=== PATIENT | male | born 1970 | race Caucasian/White ===

== ENCOUNTER 2016-10-27 09:51 | Emergency (ER) | payer MEDICARE ==
[~2016-10-27] VITALS: Ht 172.7 cm; Wt 93.4 kg
[~2016-10-27 09:51] MED LIST: ACHC10OT OT; ALBU17AE3 IH; ALBU2.5V4 IH; ATOM100C PO; BACL10TA PO; CPR500T PO; CYCL10TA9 PO; DIAZ-345 PO; DIAZ10TA PO; DOXY100C2 PO; FLUO20CA25 PO; HYDR-2890 PO; HYDR-2997 PO; HYDR-3720 PO; LD5PT TOP; METH4TAB PO; NAPR-243 PO; NEBU1EAC2 MC; OXYC-197 PO; PREG100C22 PO; TMSL.4C PO; TRAM300T4 PO; TRAZ300T3 PO; [UNRECOGNIZED DRUG - CODE]
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
[2016-10-27 12:59] LABS: BILIRUBIN,URINE NEGATIVE (NEGATIVE); KETONES,URINE 1+ (NEGATIVE); LEUKOCYTE ESTERASE ,URINE 1+ (NEGATIVE); NITRITE,URINE NEGATIVE (NEGATIVE); PH,URINE 6 (5-9); PROTEIN,URINE 2+ (NEGATIVE); UROBILINOGEN,URINE NORMAL (NORMAL)
[2016-10-27] MEDS ORDERED: KETOROLAC 30 MG/ML VIAL IVP STA (13:06)
[2016-10-27] MEDS ORDERED: NS IV 1000 ML 1,000 ML IV ONE (13:06)
[2016-10-27] MEDS ORDERED: ORPHENADRINE 60 MG/2 ML (NORFLEX) AMP IV STA (13:06)
[2016-10-27 13:08] LABS: SQUAMOUS EPITHELIAL CELL,UR RARE /HPF
[2016-10-27] MEDS ORDERED: NS 100 ML (IVPB) BAG IV ONE (13:15)
[2016-10-27] MEDS ORDERED: IOHEXOL 350 MG/ML 100 ML (OMNIPAQUE 350) VIAL IV ONE (13:15)
[2016-10-27] MEDS ORDERED: CATHETER FLUSH 10 ML SYR IV PRN (13:15)
[2016-10-27] MEDS ORDERED: ONDANSETRON 4 MG/2 ML (SDV) Z0FRAN IVP ONE (13:15)
[2016-10-27 13:36] LABS: BASOPHILS % (AUTO) 0 % (0-10); EOSINOPHILS % (AUTO) 0 % (0-10); LYMPHOCYTES # (AUTO) 1.3 X 10^3 (1.0-4.0); LYMPHOCYTES % (AUTO) 21 % (12-44); MEAN CORPUSCULAR HEMOGLOBIN 32 PG (25-34); MEAN CORPUSCULAR HGB CONC 36 G/DL (32-36); MEAN CORPUSCULAR VOLUME 88 FL (80-99); MEAN PLATELET VOLUME 9.3 FL (7.4-10.4); MONOCYTES % (AUTO) 17 % (0-12); NEUTROPHILS # (AUTO) 3.7 X 10^3 (1.8-7.8); NEUTROPHILS % (AUTO) 62 % (42-75); PLATELET COUNT 237 10^3/uL (130-400); RED BLOOD COUNT 5.21 10^6/uL (4.35-5.85); RED CELL DISTRIBUTION WIDTH 13.3 % (10.0-14.5)
[2016-10-27 14:02] LABS: ALANINE AMINOTRANSFERASE 49 U/L (0-55); ALBUMIN 4.8 G/DL (3.2-4.5); ANION GAP 13 MMOL/L (5-14); ASPARTATE AMINO TRANSFERASE 40 U/L (5-34); BILIRUBIN,TOTAL 0.5 MG/DL (0.1-1.0); BLOOD UREA NITROGEN 11 MG/DL (7-18); BUN/CREATININE RATIO 10; CALCIUM 9.1 MG/DL (8.5-10.1); CARBON DIOXIDE 21 MMOL/L (21-32); CHLORIDE 101 MMOL/L (98-107); CREATININE SERUM 1.08 MG/DL (0.60-1.30); GFR ESTIMATED > 60; GLUCOSE 106 MG/DL (70-105); POTASSIUM 3.3 MMOL/L (3.6-5.0); SODIUM 135 MMOL/L (135-145)
--- NOTE | 2016-10-27 14:08 | Diagnostic Imaging Report ---
PROCEDURE: CT abdomen and pelvis with contrast. TECHNIQUE: Multiple contiguous axial images were obtained through the abdomen and pelvis after administration of intravenous contrast. INDICATION: Abdominal pain. Cough. History of hernia repair. 100 mL of Omnipaque 350 is administered intravenously. FINDINGS: The lung bases are clear. The liver, the gallbladder, the spleen, the adrenals, and the pancreas appear unremarkable. The kidneys have symmetric enhancement and contrast excretion. There is no hydronephrosis. Abdominal aorta is normal in caliber. No para-aortic significantly enlarged lymph node is seen. There is a prominent amount of fluid within the proximal colon and the small bowel loops. Consider possibility of enteritis. There is no bowel obstruction however. No inflammatory changes in the abdominal fat and no free fluid or fluid collection of significance seen. The appendix is normal. There is mild diastases of the recti with no hernia seen. Fossa structures demonstrate lower lumbar spine degenerative changes with disc vacuum phenomenon at L4/5 level. IMPRESSION: Suggestion of excessive amount of fluid in the small bowel and proximal colon may relate to enteritis. Correlate clinically. Dictated by: Dictated on workstation # [id number]
[2016-10-27] MEDS ORDERED: CYCL10TA9 PO (14:58)
[2016-10-27] MEDS ORDERED: ONDA8TAB13 PO (14:58)
[2016-10-27 15:08] VITALS: BP 144/101
== END 2016-10-27 15:06 | disposition home or self-care (01) ==
LOC: EDUNIT# 09:51 → ER 09:54
DX: M62.838 Other muscle spasm (principal); R11.0 Nausea; J06.9 Acute upper respiratory infection, unspecified
CPT/HCPCS: 36415; 74177; 80053; 80306; 81000; 85025; 96361; 96374; 96375

== ENCOUNTER → 2017-02-27 | Outpatient (CLI) | payer MEDICARE, OTHER ==
[~2017-02-27] MED LIST changes: +GADOBUTROL 10 MMOL/10 ML (GADAVIST) VIAL IV ONE; +ONDA8TAB13 PO
--- NOTE | 2017-02-27 14:56 | Diagnostic Imaging Report ---
PROCEDURE: MRI lumbar spine with and without contrast. TECHNIQUE: Multiplanar, multisequence MRI of the lumbar spine was performed with and without contrast. INDICATION: Chronic back pain, left leg numbness. FINDINGS: The previous MRI lumbar spine exam of 04/12/09 noted a circumferential disc bulge at L4-L5 with narrowing of the central canal to approximately 8.0 mm. On this exam, the disc bulge is again evident. There does seem to be greater narrowing of the disc space at L4-L5 than noted on the prior exam. The disc bulge centrally is also more prominent and the AP diameter of the thecal sac is now narrowed to 5.6 mm. There is severe narrowing of the neuroforamen bilaterally at this level, particularly on the right. This finding is similar to the prior exam. The prior study also noted a disc bulge centrally at L5-S1. The discs efface the ventral aspect of the thecal sac and narrow the AP diameter of the thecal sac to approximately 13 mm. The disc bulge at this level is slightly more prominent and the AP diameter of the thecal sac is now narrowed to 9.1 mm. As on the prior exam, there is narrowing of the neuroforamen bilaterally, again more so on the right. There is a broad-based disc bulge centrally at L3-L4. The disc flattens the ventral aspect and narrows the AP diameter of the thecal sac to approximately 7.0 mm. On the prior exam, the AP diameter of the thecal sac at the L3-L4 level measured 10.1 mm. There is also moderate narrowing of the neuroforamen bilaterally at this level, especially on the right. At the L2-L3 level, the AP diameter of the thecal sac is narrowed to 10.0 mm. There is also moderate narrowing of the neuroforamen bilaterally. These findings are similar to the prior exam. There is no evidence for spinal stenosis or nerve root encroachment at L1-L2. There is no abnormal signal arising from the cord or the vertebral bodies to indicate an acute abnormality. There is no abnormal enhancement on the postcontrast series either. There is no sign of a paraspinal mass. IMPRESSION: 1. 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 There is also continued severe narrowing of the neuroforamen bilaterally, particularly on the right. 2. Mild spinal stenosis has also developed at L5-S1. There is again severe narrowing of the neuroforamen on the right at this level and moderate narrowing on the left. 3. There is moderate central stenosis now present at the L3-L4 level with neuroforaminal narrowing bilaterally, especially on the right. 4. The remainder of the lumbar spine is unremarkable for a high-grade central stenosis. 5. There is no acute bony abnormality noted and there is no sign of a cord lesion. 6. There is no abnormal enhancement on the postcontrast series. Dictated by: Dictated on workstation # [id number]
--- NOTE | 2017-02-27 17:51 | Diagnostic Imaging Report ---
EXAMINATION: Lumbar spine. INDICATION: Bilateral leg numbness. TECHNIQUE: AP, lateral, and spot lateral views were obtained. FINDINGS: As noted on the prior exam of 09/20/2009, there is narrowing of the disc space at L4-L5. This finding seems stable. Also, in the interval since the prior study, mild narrowing of the disc space at L5-S1 has developed. Translation of L4 with respect to L5 noted previously is again evident. As suggested on the prior exam, there is a pars defect at L5 but there is no significant anterior translation of L5 with respect to S1. The remainder of the lumbar spine is unchanged when compared to the prior exam. There is no fracture, dislocation, or acute bony abnormality evident. There is no sign of a paraspinal mass. IMPRESSION: 1. The degenerative disc and bony disease at L4-L5 seen on the prior study has not progressed. There is slightly greater narrowing of the disc space at L5-S1, however. 2. The remainder of the lumbar spine is stable. There is no acute abnormality identified. 3. If there is clinical concern regarding spinal stenosis or nerve root encroachment, then MRI would be recommended for further study. Dictated by: Dictated on workstation # [id number]
--- NOTE | 2017-02-27 18:10 | Diagnostic Imaging Report ---
EXAMINATION: Pelvis and bilateral hips. INDICATION: Bilateral leg weakness and numbness. A single AP view of the pelvis and AP and lateral views of both hip joints were obtained. There are no prior plain film examinations available for comparison. FINDINGS: There is no fracture, dislocation, or acute bony abnormality evident. There is mild degenerative disease involving the hip and sacroiliac joints. The soft tissues are unremarkable. IMPRESSION: There is no evidence for an acute bony abnormality. Dictated by: Dictated on workstation # [id number]
== END ==
LOC: RAD 10:56
PROVIDERS: ATTEND Family Medicine
DX: M51.36 Other intervertebral disc degeneration, lumbar region (principal); M48.06 Spinal stenosis, lumbar region; M25.551 Pain in right hip; M25.552 Pain in left hip
CPT/HCPCS: 72100; 72158; 73523

== ENCOUNTER 2017-03-29 07:12 | Emergency (ER) | payer MEDICARE ==
[~2017-03-29] VITALS: Ht 172.7 cm; Wt 97.5 kg
[~2017-03-29 07:12] MED LIST changes: -GADOBUTROL 10 MMOL/10 ML (GADAVIST) VIAL IV ONE
[2017-03-29] MEDS ORDERED: methylPREDNISolone 125 MG (Solu-MEDROL) VIAL IM ONE (07:45)
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
[2017-03-29 08:35] VITALS: BP 153/97
== END 2017-03-29 08:35 | disposition home or self-care (01) ==
LOC: EDUNIT# 07:12 → ER 07:13
DX: L23.7 Allergic contact dermatitis due to plants, except food (principal); J45.909 Unspecified asthma, uncomplicated; Z87.19 Personal history of other diseases of the digestive system; Z87.828 Personal history of other (healed) physical injury and trauma; Z87.891 Personal history of nicotine dependence
CPT/HCPCS: 99284

== ENCOUNTER 2018-03-30 13:14 | Emergency (ER) | payer MEDICARE ==
[~2018-03-30] VITALS: Ht 172.7 cm; Wt 95.3 kg
[~2018-03-30 13:14] MED LIST changes: -OXYC-197 PO; +OXYC1TAB87 PO
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
[2018-03-30] MEDS ORDERED: CEPH-507 PO (13:57)
[2018-03-30 14:19] VITALS: BP 140/113
== END 2018-03-30 14:19 | disposition home or self-care (01) ==
LOC: EDUNIT# 13:14 → ER 13:15
DX: L03.011 Cellulitis of right finger (principal); J06.9 Acute upper respiratory infection, unspecified; J45.909 Unspecified asthma, uncomplicated; Z87.891 Personal history of nicotine dependence; Z87.19 Personal history of other diseases of the digestive system
CPT/HCPCS: 87430

== ENCOUNTER 2018-04-26 11:12 | Emergency (ER) | payer MEDICARE ==
[~2018-04-26] VITALS: Ht 170.2 cm; Wt 95.3 kg
[~2018-04-26 11:12] MED LIST changes: +CEPH-507 PO
--- OUTSIDE RECORDS SUMMARY | 2018-04-26 11:26 | XMS REPORT | Continuity of Care Document ---
Author Author [facility] Organization [facility] Address Unknown Phone Unavailable Allergies Active Description Code Type Severity Reaction Onset Reported/Identified Relationship to Patient Clinical Status Yes No Known Drug Allergies [id number] Drug Allergy Mild N/A 12/18/2008 Medications There [...] 573.8 08/14/2015 Ot 780.60 08/14/2015 STEPHENIE GOULD, JAMYE Diaz Ot 473.0 08/17/2015 Ot 553.1 08/17/2015 [...] 573.8 09/28/2015 Ot 780.60 09/28/2015 STEPHENIE GOULD, JAMEY Diaz Ot 473.0 09/28/2015 JEAN GOULD, GAB [...] MD Ot J32.9 CHRONIC SINUSITIS, UNSPECIFIED 11/27/2015 CHE URRUTIA MD Ot J32.9 CHRONIC SINUSITIS, [...] PERSONAL HISTORY OF NICOTINE DEPENDENCE 03/31/2017 HUMERA GOULD, GERMAINE Celestin Ot J45.909 UNSPECIFIED ASTHMA, UNCOMPLICATED 03/31/2017 HUMERA GOULD, GERMAINE Celestin Ot L23.7 ALLERGIC CONTACT DERMATITIS DUE TO PLANT 03/31/2017 GERMAINE GRUBBS MD Ot Z87.19 PERSONAL HISTORY OF OTHER DISEASES OF 03/31/2017 GERMAINE GRUBBS MD Ot Z87.828 PERSONAL HISTORY OF OTH (HEALED) PHYSICA 03/31/2017 GERMAINE GRUBBS MD Ot Z87.891 PERSONAL HISTORY OF NICOTINE DEPENDENCE 03/30/2018 MENDEL MAGUIRE Ot J06.9 ACUTE UPPER RESPIRATORY INFECTION, UNSPE 03/30/2018 MENDEL MAGUIRE Ot J45.909 UNSPECIFIED ASTHMA, UNCOMPLICATED 03/30/2018 MENDEL MAGUIRE Ot L03.011 CELLULITIS OF RIGHT FINGER 03/30/2018 MENDEL MAGUIRE Ot Z87.19 PERSONAL HISTORY OF OTHER DISEASES OF 03/30/2018 MENDEL MAGUIRE Ot Z87.891 PERSONAL HISTORY OF NICOTINE DEPENDENCE 04/01/2018 MENDEL MAGUIRE Ot J06.9 ACUTE UPPER RESPIRATORY INFECTION, UNSPE 04/01/2018 MENDEL MAGUIRE Ot J45.909 UNSPECIFIED ASTHMA, UNCOMPLICATED 04/01/2018 MENDEL MAGUIRE Ot L03.011 CELLULITIS OF RIGHT FINGER 04/01/2018 DIANE MAGUIREIS Ot Z87.19 PERSONAL HISTORY OF OTHER DISEASES OF 04/01/2018 MENDEL MAGUIRE Ot Z87.891 PERSONAL HISTORY OF NICOTINE DEPENDENCE [...] plasma albumin measurement (mass/volume) 4.8 g/dL 3.2-4.5 Streptococcus pyogenes antigen detection - 03/30/18 13:30 Streptococcus pyogenes antigen detection NEGATIVE NEGATIVE Bacterial throat culture - 03/30/18 13:30 Bacterial throat culture [id number] NRG FREE TEXT EXTERNAL PLUS ABUNDANT NORMAL MARK NRG QUANTITY OF GROWTH Moderate Growth NRG Encounters ACCT No. Visit Date/Time Discharge Status Pt. Type Provider Facility Loc./Unit Complaint [id number] 03/30/2018 13:15:00 03/30/2018 14:19:00 DIS Emergency TING MENDEL [facility] ER CONGESTION;BUG BITE [id number] 03/29/2017 07:13:00 03/29/2017 08:35:00 DIS Emergency HUMERA GOULD, GERMAINE Celestin [facility] ER POSS POSION [place] ON FACE [id number] 02/27/2017 10:56:00 02/27/2017 23:59:59 CLS Outpatient MINE GOULD, KERI [facility] RAD M51.19 [id number] 10/27/2016 09:54:00 10/27/2016 15:06:00 DIS Emergency YUSUF CHRISTENSEN [facility] ER ABD PAIN/SPASMS [id number] 05/27/2016 10:28:00 05/27/2016 23:59:59 CLS Outpatient ZACARIAS PAYNE [facility] QUICK BACK PAIN [id number] 09/28/2015 12:28:00 09/28/2015 23:59:59 CLS Outpatient RENAN GOULD, CHE Rodríguez [facility] RAD CHRONIC SINUSITIS [id number] 08/17/2015 09:44:00 08/17/2015 16:35:00 DIS Outpatient GAB PENA MD [facility] SDC RIGHT INGUINAL HERNIA [id number] 08/15/2015 05:33:00 08/15/2015 23:59:59 CLS Outpatient GAB PENA MD [facility] PREOP RIGHT INGUINAL HERNIA [id number] 10/25/2014 10:40:00 10/25/2014 23:59:59 CLS Outpatient JAMEY CASIANO MD [facility] RAD CHRONIC SINUSITIS [id number] 10/02/2015 15:11:00 Document Registration [id number] 10/02/2015 15:11:00 Document Registration [id number] 10/02/2015 15:11:00 Document Registration [id number] 10/02/2015 15:11:00 Document Registration [id number] 10/02/2015 15:11:00 Document Registration [id number] 10/25/2014 15:45:00 Document Registration [id number] 10/25/2014 15:45:00 Document Registration [id number] 10/25/2014 15:45:00 Document Registration [id number] 12/15/2011 20:56:00 Document Registration [id number] 10/31/2011 11:24:00 Document Registration [id number] 10/25/2011 01:49:00 Document Registration [id number] 07/16/2011 05:44:00 Document Registration [id number] 06/06/2010 12:59:00 Document Registration [id number] 05/16/2010 13:41:00 Document Registration [id number] 04/16/2010 13:21:00 Document Registration [id number] 09/26/2009 00:12:00 Document Registration [id number] 04/12/2009 09:38:00 Document Registration [id number] 01/18/2009 10:37:00 Document Registration [id number] 11/01/2008 12:30:00 Document Registration [id number] 10/18/2008 08:18:00 Document Registration
--- NOTE | 2018-04-26 11:34 | ED Dyspnea ---
General Stated Complaint: COUGH;CONGESTION Source of Information: Patient Exam Limitations: No Limitations History of Present Illness Date Seen by Provider: Apr 26, 2018 Time Seen by Provider: 11:32 Initial Comments To ER with one month history of dyspnea. He's had a intermittently productive cough. No fevers or chills. He was seen here in the emergency room within the past few weeks for the same at that time it was felt as though he had a virus. He's been using his inhaler with minimal relief. At this time he does not feel short of breath. States that he feels like his lungs are full. Timing/Duration: Other (1 month) Severity: Moderate Associated Symptoms: Cough Allergies and Home Medications Allergies Coded Allergies: No Known Drug Allergies (Unverified , 12/18/08) Home Medications Cephalexin 500 Mg Capsule, 500 MG PO BID Prescribed by: MENDEL MAGUIRE on 03/30/18 8924 Patient Home Medication List Home Medication List Reviewed: Yes Review of Systems Review of Systems Constitutional: see HPI; No chills, No fever EENTM: see HPI Respiratory: see HPI, cough, short of breath Cardiovascular: no symptoms reported; No chest pain, No palpitations, No syncope Genitourinary: no symptoms reported Musculoskeletal: no symptoms reported Skin: no symptoms reported Psychiatric/Neurological: No Symptoms Reported Endocrine: No Symptoms Reported Hematologic/Lymphatic: No Symptoms Reported Past Elqaexg-Ikzyhs-Xzpndd Hx Patient Social History Alcohol Beverage of Choice: Beer Former Smoker, Quit: Oct 04, 1996 Recent Hopitalizations: No Seasonal Allergies Seasonal Allergies: Yes Past Medical History Surgeries: Yes (left leg fx, left ankle crushed, right leg fx, umb hernia) Abdominal, Orthopedic Respiratory: Yes Asthma Cardiac: No Neurological: No Reproductive Disorders: No Sexually Transmitted Disease: No Gastrointestinal: Yes Abdominal Hernia Musculoskeletal: Yes (CRUSH INJURY TO LEFT ANKLE) Chronic Back Pain Endocrine: No Cancer: No Psychosocial: No Integumentary: No (hx of frequent superficial skin infections) Blood Disorders: No (hx of low potassium) Family Medical History No Pertinent Family Hx Physical Exam Vital Signs Capillary Refill : Height, Weight, BMI Height: 5'8.00" Weight: 210lbs. oz. 95.211287so; 32.45 BMI Method:Stated General Appearance: No Apparent Distress, WD/WN, Obese Neck: Full Range of Motion, Normal Inspection Respiratory: Lungs Clear, Normal Breath Sounds, No Accessory Muscle Use, No Respiratory Distress Cardiovascular: Regular Rate, Rhythm, Normal Peripheral Pulses Gastrointestinal: Normal Bowel Sounds, Non Tender, Soft Extremity: Normal Capillary Refill, Normal Inspection Neurologic/Psychiatric: Alert, Oriented x3 Skin: Normal Color, Warm/Dry Progress/Results/Core Measures Results/Orders Lab Results Laboratory Tests Test 04/26/18 11:54 Range/Units White Blood Count 8.4 4.3-11.0 10^3/uL Red Blood Count 4.79 4.35-5.85 10^6/uL Hemoglobin 15.6 13.3-17.7 G/DL Hematocrit 43 40-54 % Mean Corpuscular Volume 90 80-99 FL Mean Corpuscular Hemoglobin 33 25-34 PG Mean Corpuscular Hemoglobin Concent 36 32-36 G/DL Red Cell Distribution Width 13.3 10.0-14.5 % Platelet Count 370 130-400 10^3/uL Mean Platelet Volume 8.6 7.4-10.4 FL Neutrophils (%) (Auto) 54 42-75 % Lymphocytes (%) (Auto) 34 12-44 % Monocytes (%) (Auto) 7 0-12 % Eosinophils (%) (Auto) 4 0-10 % Basophils (%) (Auto) 1 0-10 % Neutrophils # (Auto) 4.5 1.8-7.8 X 10^3 Lymphocytes # (Auto) 2.9 1.0-4.0 X 10^3 Monocytes # (Auto) 0.6 0.0-1.0 X 10^3 Eosinophils # (Auto) 0.4 H 0.0-0.3 10^3/uL Basophils # (Auto) 0.0 0.0-0.1 10^3/uL Sodium Level 138 135-145 MMOL/L Potassium Level 4.0 3.6-5.0 MMOL/L Chloride Level 105 98-107 MMOL/L Carbon Dioxide Level 21 21-32 MMOL/L Anion Gap 12 5-14 MMOL/L Blood Urea Nitrogen 10 7-18 MG/DL Creatinine 1.01 0.60-1.30 MG/DL Estimat Glomerular Filtration Rate > 60 BUN/Creatinine Ratio 10 Glucose Level 158 H 70-105 MG/DL Calcium Level 9.7 8.5-10.1 MG/DL Corrected Calcium 9.3 8.5-10.1 MG/DL Total Bilirubin 0.4 0.1-1.0 MG/DL Aspartate Amino Transf (AST/SGOT) 23 5-34 U/L Alanine Aminotransferase (ALT/SGPT) 41 0-55 U/L Alkaline Phosphatase 75 40-136 U/L B-Type Natriuretic Peptide < 10.0 <100.0 PG/ML Total Protein 7.8 6.4-8.2 GM/DL Albumin 4.5 3.2-4.5 GM/DL My Orders Orders - JAMEY ENCISO APRN Ekg Tracing (04/26/18 11:30) BNP (04/26/18 11:30) Cbc With Automated Diff (04/26/18 11:30) Comprehensive Metabolic Panel (04/26/18 11:30) Chest Pa/Lat (2 View) (04/26/18 11:30) Departure Communication (Admissions) EKG shows normal sinus rhythm without ectopy, left anterior fascicular block. Heart rate of 83. Impression Primary Impression: Dyspnea Disposition: 01 HOME, SELF-CARE Condition: Stable Departure-Patient Inst. Decision time for Depature: 12:28 Referrals: KERI BLOUNT MD (PCP/Family) Primary Care Physician Patient Instructions: Shortness of Breath (Dyspnea) Add. Discharge Instructions: 1. Call Dr. Blount to make an appointment for follow-up. Return to the emergency room for any concerns. Scripts Methylprednisolone (Medrol) 4 Mg Tab.ds.pk 4 MG PO UD, #1 PKG Prov: JAMEY ENCISO APRN 04/26/18 Copy Copies To 1: KERI BLOUNT MD, PETER J APRN Apr 26, 2018 11:34
[2018-04-26 12:01] LABS: BASOPHILS % (AUTO) 1 % (0-10); EOSINOPHILS # (AUTO) 0.4 10^3/uL (0.0-0.3); EOSINOPHILS % (AUTO) 4 % (0-10); HEMATOCRIT 43 % (40-54); HEMOGLOBIN 15.6 G/DL (13.3-17.7); LYMPHOCYTES # (AUTO) 2.9 X 10^3 (1.0-4.0); LYMPHOCYTES % (AUTO) 34 % (12-44); MEAN CORPUSCULAR HEMOGLOBIN 33 PG (25-34); MEAN CORPUSCULAR HGB CONC 36 G/DL (32-36); MEAN CORPUSCULAR VOLUME 90 FL (80-99); MEAN PLATELET VOLUME 8.6 FL (7.4-10.4); MONOCYTES # (AUTO) 0.6 X 10^3 (0.0-1.0); MONOCYTES % (AUTO) 7 % (0-12); NEUTROPHILS # (AUTO) 4.5 X 10^3 (1.8-7.8); NEUTROPHILS % (AUTO) 54 % (42-75); PLATELET COUNT 370 10^3/uL (130-400); RED BLOOD COUNT 4.79 10^6/uL (4.35-5.85); RED CELL DISTRIBUTION WIDTH 13.3 % (10.0-14.5); WHITE BLOOD COUNT 8.4 10^3/uL (4.3-11.0)
[2018-04-26 12:19] LABS: ALANINE AMINOTRANSFERASE 41 U/L (0-55); ALBUMIN 4.5 GM/DL (3.2-4.5); ALKALINE PHOSPHATASE 75 U/L (40-136); BILIRUBIN,TOTAL 0.4 MG/DL (0.1-1.0); BUN/CREATININE RATIO 10; CALCIUM 9.7 MG/DL (8.5-10.1); CARBON DIOXIDE 21 MMOL/L (21-32); CHLORIDE 105 MMOL/L (98-107); CREATININE SERUM 1.01 MG/DL (0.60-1.30); GFR ESTIMATED > 60; GLUCOSE 158 MG/DL (70-105); SODIUM 138 MMOL/L (135-145); TOTAL PROTEIN 7.8 GM/DL (6.4-8.2)
--- NOTE | 2018-04-26 12:32 | Diagnostic Imaging Report ---
INDICATION: Cough, cold, and congestion. TIME OF EXAM: 12:29 p.m. COMPARISON: Comparison is made with prior chest from 12/15/2011. FINDINGS: The heart size is normal. Calcified granulomas in left midlung are stable. No infiltrate is seen. No effusion or pneumothorax is identified. The pulmonary vascularity is unremarkable. IMPRESSION: No acute cardiopulmonary process is detected. Dictated by: Dictated on workstation # [id number]
[2018-04-26] MEDS ORDERED: METH4TAB PO (12:34)
[2018-04-26 12:39] VITALS: BP 169/96
== END 2018-04-26 12:39 | disposition home or self-care (01) ==
LOC: EDUNIT# 11:12 → ER 11:13
DX: R06.00 Dyspnea, unspecified (principal); J45.909 Unspecified asthma, uncomplicated; Z87.891 Personal history of nicotine dependence; Z87.19 Personal history of other diseases of the digestive system
CPT/HCPCS: 36415; 71046; 80053; 83880; 85025; 93005

== ENCOUNTER 2018-06-10 05:35 | Outpatient (CLI) | payer MEDICARE ==
[~2018-06-10] VITALS: Ht 170.2 cm; Wt 95.3 kg
== END 2018-06-10 11:01 | disposition home or self-care (01) ==
LOC: PREOP 05:35
PROVIDERS: ATTEND Surgery
DX: Z01.818 Encounter for other preprocedural examination (principal)

== ENCOUNTER 2018-06-17 05:50 | Day surgery (SDC) | payer MEDICARE ==
[~2018-06-17] VITALS: Ht 165.1 cm; Wt 98.1 kg
[2018-06-17] MEDS ORDERED: ceFAZolin 2 GM IV Premixed 50 ML IV ONE (06:15)
[2018-06-17] MEDS ORDERED: SEVOFLURANE (ULTANE) 15 ML INHAL SOLN ONE ×5 (07:15→09:15)
[2018-06-17] MEDS ORDERED: MIDAZOLAM 2 MG/2 ML (VERSED) VIAL IVP ONE (07:15)
[2018-06-17] MEDS ORDERED: DEXAMETHASONE 10 MG/ML (DECADRON) 1 ML VIAL ONE (07:15)
[2018-06-17] MEDS ORDERED: fentaNYL INJECTION 100 MCG/2 ML AMP ONE ×2 (07:15→08:59)
[2018-06-17] MEDS ORDERED: LIDOCAINE PF 2% 5 ML (XYLOCAINE) VIAL ONE (07:15)
[2018-06-17] MEDS ORDERED: ONDANSETRON 4 MG/2 ML (SDV) Z0FRAN ONE (07:15)
[2018-06-17] MEDS ORDERED: proPOfol 200 MG/20 ML (DIPRIVAN) VIAL IV ONE ×3 (07:15→08:59)
[2018-06-17] MEDS ORDERED: LIDOCAINE 1% INJ 20 ML 20 ML VIAL ONE (07:20)
[2018-06-17] MEDS ORDERED: BUPIVACAINE 0.5% 30 ML (SENSORCAINE) VIAL ONE (07:20)
--- NOTE | 2018-06-17 07:51 | Progress Note-Pre Operative ---
Pre-Operative Progress Note H&P Reviewed The H&P was reviewed, patient examined and no changes noted. Date Seen by Provider: Jun 17, 2018 Time Seen by Provider: 07:50 Date H&P Reviewed: Jun 17, 2018 Time H&P Reviewed: 07:50 Pre-Operative Diagnosis: recurrent right inguinal hernia MARTHA CASANOVA DO Jun 17, 2018 07:51
[2018-06-17] MEDS: LACTATED RINGERS 1,000 ML IV PRN ×2 (07:55→09:00)
[2018-06-17] MEDS ORDERED: ROCURONIUM 10 MG/ML 5 ML SYRINGE IV ONE (08:33)
--- NOTE | 2018-06-17 09:13 | Progress Note-Post Operative ---
Post-Operative Progess Note Surgeon (s)/Director Global Development (s) Surgeon MARTHA CASANOVA DO Director Global Development: Dr. Biard Pre-Operative Diagnosis recurrent right inguinal hernia Post-Operative Diagnosis recurrent incarcerated right inguinal hernia Procedure & Operative Findings Date of Procedure 06/17/18 Procedure Performed/Findings open right recurrent incarcerated inguinal hernia repair. Anesthesia Type general Estimated Blood Loss Estimated blood loss (mL): minimal Specimens/Packing Specimens Removed na MARTHA CASANOVA DO Jun 17, 2018 09:13
[2018-06-17] MEDS ORDERED: ACHD5005 PO (09:14)
[2018-06-17] MEDS ORDERED: DOCU-143 PO (09:14)
[2018-06-17] MEDS ORDERED: HYDROcodone/APAP 5 MG/325 MG (LORTAB) TAB PO PRN (09:15)
--- NOTE | 2018-06-17 09:16 | Discharge Inst-Simple/Standard ---
Discharge Inst-Standard Discharge Medications New, Converted or Re-Newed RX: RX on Chart Patient Instructions/Follow Up Plan of Care/Instructions/FU: 2-3 weeks julio Activity as Tolerated: No Discharge Diet: Regular Diet Other Inst to Patient Follow up Appt: Make appointment for 2-3 week. Instructions: No lifting greater than 10 pounds. No strenuous activity. May shower in 24 hours, no tub bath or soaking. Use incentive spirometer at home as directed. No Smoking Skin/Wound Care: You have special glue over incision it will fall off on its own. Symptoms to Report: Appetite Changes, Extremity Discoloration, Numbness/Tingling, Swelling Increased , Bleeding Excessive, Eyesight Changes, Pain Increased, Urine Color Change, Constipation(Persistent), Fever over 101 degree F, Pain/Pressure in chest, Urinating Difficulty, Cough Up/Vomit Blood, Heart Beat Irreg/Pounding, Pain/ Pressure in jaw, Vaginal Bleeding Increase, Cramps in feet or legs, Lightheadedness, Pain/Pressure in shoulder, Diarrhea(Persistent), Memory Changes Suddenly, Questions/Concerns, Weight gain consecutive days, Dizziness/ Fainting, Nausea/Vomiting, Shortness of Breath, Weight gain over 2 pounds If questions or concerns contact your physician Or seek help at emergency department. MARTHA CASANOVA DO Jun 17, 2018 09:16
[2018-06-17] MEDS ORDERED: ONDANSETRON 4 MG/2 ML (SDV) Z0FRAN IVP PRN (09:30)
[2018-06-17] MEDS ORDERED: morphine INJ 10 MG/ML 1ML (SYR OR VIAL) IVP ONE (09:30)
[2018-06-17 10:25] VITALS: BP 137/91
[2018-06-17] MEDS ORDERED: LACTATED RINGERS 1,000 ML IV ONE (10:50)
[2018-06-17 10:55] VITALS: BP 136/82
[2018-06-17 11:25] VITALS: BP 153/98
--- NOTE | 2018-06-17 13:01 | Anesthesia-General Post-Op ---
General Patient Condition Mental Status/LOC: Same as Preop Cardiovascular: Satisfactory Nausea/Vomiting: Absent Respiratory: Satisfactory Pain: Controlled Complications: Absent Post Op Complications Complications None Follow Up Care/Instructions Patient Instructions None needed. Anesthesia/Patient Condition Patient Condition Patient is doing well, no complaints, stable vital signs, no apparent adverse anesthesia problems. No complications reported per nursing. ALISSA GATES CRNA Jun 17, 2018 13:01
--- NOTE | 2018-06-17 15:33 | OPERATIVE REPORT ---
DATE OF SERVICE: 06/17/2018 PREOPERATIVE DIAGNOSIS: Recurrent right inguinal hernia. POSTOPERATIVE DIAGNOSIS: Recurrent incarcerated right inguinal hernia. PROCEDURE: Open right recurrent incarcerated inguinal hernia repair. SURGEON: Martha Gudino MD DIABETES EDUCATOR: Dr. Baird, assisted in retraction, dissection and closure. ANESTHESIA: General. ESTIMATED BLOOD LOSS: Minimal. COMPLICATIONS: None. INDICATIONS: The patient is a 48-year-old male with previous robotic right inguinal hernia repair. He understands risks and benefits of procedure and he wished to proceed with procedure. Consent was signed and on the chart. DESCRIPTION OF PROCEDURE: The patient was taken to the operating suite, was prepped and draped in sterile fashion. Surgical pause was performed. Local anesthetic was infiltrated in the area. A 15 blade scalpel was used to make a skin incision in the right lower quadrant, which cautery was used to dissect down to the external oblique. The external oblique was then opened down through the external ring. A direct defect was present. No indirect defect was noted. The spermatic cord was dissected around and a Slaughter placed around it and was mobilized out of the way. The direct defect present had hernia contents that were affixed to the surrounding tissues, which had to be bluntly and cautery dissected in order to be able to reduce. Once able to be reduced, the open Ray-Marcio that was moistened was inserted through the defect and 0 Vicryl was placed in a [id number] fashion. We began to close the defect and the Ray-Marcio was removed. Once the floor defect was closed, a ProGrip mesh was then secured to Berry's ligament and incorporated around the spermatic cord and then placed under the external oblique in the usual fashion. The wound was then irrigated with copious amounts of irrigation and suction. Hemostasis has been achieved. The external oblique was then closed using 3-0 Vicryl in a running fashion, recreating the external ring. The subcutaneous tissues were then reapproximated using 3-0 Vicryl. Skin was then closed using 4-0 Monocryl in a running subcuticular fashion. The area was then washed and dried and Skin Affix was placed over the incision. The patient tolerated the procedure well without any complications and was taken to recovery room in stable condition. Job ID: [id number] DocumentID: [id number] Dictated Date: 06/17/2018 11:11:26 Organizational Development Manager Date: 06/17/2018 15:32:59 Dictated By: MARTHA GUDINO DO
== END 2018-06-17 11:30 | disposition home or self-care (01) ==
LOC: SDC 05:50
PROVIDERS: ATTEND Surgery
DX: K40.31 Unilateral inguinal hernia, with obstruction, without gangrene, recurrent (principal); J45.909 Unspecified asthma, uncomplicated; Z87.891 Personal history of nicotine dependence
CPT/HCPCS: 87081; 94664

== ENCOUNTER → 2018-08-04 | Emergency (ER) | payer MEDICARE, OTHER ==
[~2018-08-04] VITALS: Ht 172.7 cm; Wt 97.5 kg
[~2018-08-04] MED LIST changes: +ACHD5005 PO; +DOCU-143 PO; +DOXY100T19 PO; +HYDR-4226 PO; +LIDOCAINE 1% INJ 20 ML 20 ML VIAL INJ ONE
--- OUTSIDE RECORDS SUMMARY | 2018-08-04 10:03 | XMS REPORT | Continuity of Care Document ---
Author Author [facility] Organization [facility] Address Unknown Phone Unavailable Allergies Active Description Code Type Severity Reaction Onset Reported/Identified Relationship to Patient Clinical Status Yes No Known Drug Allergies [id number] Drug Allergy Mild N/A 12/18/2008 Yes Sulfa (Sulfonamide Antibiotics) [id number] Drug Allergy Mild HIVES 2017 Medications There is no data. Problems Date [...] STEPHENIE GOULD, JAMEY Diaz Ot 473.0 12/28/2014 JAMEY CASIANO MD Ot 473.0 08/14/2015 Ot 553.1 08/14/2015 Ot V72.63 08/14/2015 Ot V72.83 08/14/2015 Ot V74.8 08/14/2015 Ot 726.10 08/14/2015 Ot 276.1 08/14/2015 Ot 276.8 08/14/2015 Ot 573.8 08/14/2015 Ot 780.60 08/14/2015 JAMEY CASIANO MD Ot 473.0 08/17/2015 Ot 553.1 08/17/2015 Ot V72.63 08/17/2015 Ot V72.83 08/17/2015 Ot V74.8 08/17/2015 Ot 726.10 08/17/2015 Ot 276.1 08/17/2015 Ot 276.8 08/17/2015 Ot 573.8 08/17/2015 Ot 780.60 08/17/2015 JAMEY CASIANO MD Ot 473.0 08/17/2015 JEAN GOULD, GAB Harris [...] RENAN GOULD, CHE Rodríguez Ot J32.9 10/10/2015 CHE URRUTIA MD Ot J32.9 11/19/2015 CHE URRUTIA MD Ot J32.9 CHRONIC SINUSITIS, UNSPECIFIED 11/22/2015 Ot 553.1 UMBILICAL HERNIA 11/22/2015 Ot V72.63 PRE- PROCEDURAL LABORATORY EXAMINATION 11/22/2015 Ot V72.83 EXAM PRE- OPERATIVE NEC 11/22/2015 Ot V74.8 SCREEN- BACTERIAL DIS NEC 11/22/2015 Ot 726.10 BURSAE TENDONS DIS SHLDER NOS 11/22/2015 Ot 276.1 HYPOSMOLALITY 11/22/2015 Ot 276.8 HYPOPOTASSEMIA 11/22/2015 Ot 573.8 LIVER DISORDERS NEC 11/22/2015 Ot 780.60 FEVER, UNSPECIFIED 11/22/2015 JAMEY CASIANO MD Ot 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 11/22/2015 JEAN [...] NEC 10/27/2016 Ot 780.60 FEVER, UNSPECIFIED 10/27/2016 JAMEY CASIANO MD Ot 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 10/27/2016 JEAN GOULD, GAB Harris Ot K40.90 UNIL INGUINAL HERNIA, W/O OBST OR GANGR, 10/27/2016 GAB PENA MD Ot Z01.818 ENCOUNTER FOR OTHER PREPROCEDURAL EXAMIN 10/27/2016 CHE URRUTIA MD Ot J32.9 CHRONIC SINUSITIS, UNSPECIFIED 10/28/2016 YUSUF CHRISTENSEN Ot J06.9 ACUTE UPPER RESPIRATORY INFECTION, UNSPE 10/28/2016 YUSUF CHRISTENSEN Ot M62.838 OTHER MUSCLE SPASM 10/28/2016 LUIS ENRIQUE CHRISTENSENEN Eldon Ot R10.30 LOWER ABDOMINAL PAIN, UNSPECIFIED 10/28/2016 DEDE ECHEVERRIA YUSUF L Ot R11.0 NAUSEA 10/29/2016 DEDE ECHEVERRIA YUSUF Eldon Ot J06.9 ACUTE UPPER RESPIRATORY INFECTION, UNSPE 10/29/2016 DEDE ECHEVERRIAYUSUF Eldon Ot M62.838 OTHER MUSCLE SPASM 10/29/2016 DEDE ECHEVERRIA YUSUF L Ot R10.30 LOWER ABDOMINAL PAIN, UNSPECIFIED 10/29/2016 DEDE ECHEVERRIA YUSUF L Ot R11.0 NAUSEA 10/31/2016 DEDE ECHEVERRIA YUSUF Eldon Ot J06.9 ACUTE UPPER RESPIRATORY INFECTION, UNSPE 10/31/2016 DEDE ECHEVERRIA YUSFU Eldon Ot M62.838 OTHER MUSCLE SPASM 10/31/2016 DEDE ECHEVERRIA YUSUF Eldon Ot R10.30 LOWER ABDOMINAL PAIN, UNSPECIFIED 10/31/2016 DEDE ECHEVERRIA YUSUF Eldon Ot R11.0 NAUSEA 01/09/2017 Ot 726.10 BURSAE TENDONS DIS SHLDER NOS 01/09/2017 Ot 276.1 HYPOSMOLALITY 01/09/2017 Ot 276.8 HYPOPOTASSEMIA 01/09/2017 Ot 573.8 LIVER DISORDERS NEC 01/09/2017 Ot 780.60 FEVER, UNSPECIFIED 01/09/2017 JAMEY CASIANO MD Ot 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 01/09/2017 JEAN GOULD, GAB Harris Ot K40.90 UNIL INGUINAL HERNIA, W/O OBST OR GANGR, 01/09/2017 GAB PENA MD Ot Z01.818 ENCOUNTER FOR OTHER PREPROCEDURAL EXAMIN 01/09/2017 RENAN GOULD, CHE Rodríguez Ot J32.9 CHRONIC SINUSITIS, UNSPECIFIED 02/20/2017 Ot 726.10 BURSAE TENDONS DIS SHLDER NOS 02/20/2017 Ot 276.1 HYPOSMOLALITY 02/20/2017 Ot 276.8 HYPOPOTASSEMIA 02/20/2017 Ot 573.8 LIVER DISORDERS NEC 02/20/2017 Ot 780.60 FEVER, UNSPECIFIED 02/20/2017 STEPHENIE GOULD, JAMEY Diaz Ot 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 02/20/2017 GAB PENA MD Ot K40.90 UNIL INGUINAL HERNIA, W/O OBST OR GANGR, 02/20/2017 GAB PENA MD Ot Z01.818 ENCOUNTER FOR OTHER PREPROCEDURAL EXAMIN 02/20/2017 RENAN GOULD, CHE Rodríguez Ot J32.9 CHRONIC SINUSITIS, UNSPECIFIED 03/02/2017 MINE [...] PAIN IN RIGHT HIP 03/26/2017 MINE GOULD, KAITY-PABOL Ot M25.552 PAIN IN LEFT HIP 03/26/2017 [...] Celestin Ot J45.909 UNSPECIFIED ASTHMA, UNCOMPLICATED 03/29/2017 GERMAINE GRUBBS MD Ot L23.7 ALLERGIC CONTACT DERMATITIS DUE TO PLANT 03/29/2017 HUMERA GOULD, GERMAINE Celestin Ot Z87.19 PERSONAL HISTORY OF OTHER DISEASES OF TH 03/29/2017 GERMAINE GRUBBS MD Ot Z87.828 PERSONAL HISTORY OF OTH (HEALED) PHYSICA 03/29/2017 HUMERA GOULD, GERMAINE Celestin Ot Z87.891 PERSONAL HISTORY OF NICOTINE DEPENDENCE 03/31/2017 HUMERA GOULD, GERMAINE Celestin Ot J45.909 UNSPECIFIED ASTHMA, UNCOMPLICATED 03/31/2017 HUMERA GOULD, GERMAINE Celestin Ot L23.7 ALLERGIC CONTACT DERMATITIS DUE TO PLANT 03/31/2017 HUMERA GOULD, GERMAINE Celestin Ot Z87.19 PERSONAL HISTORY OF OTHER DISEASES OF 03/31/2017 HUMERA GOULD, GERMAINE Celestin Ot Z87.828 PERSONAL HISTORY OF OTH (HEALED) PHYSICA 03/31/2017 HUMERA GOULD, GERMAINE Celestin Ot Z87.891 PERSONAL HISTORY OF NICOTINE DEPENDENCE [...] Ot L03.011 CELLULITIS OF RIGHT FINGER 04/01/2018 MENDEL MAGUIRE Ot Z87.19 PERSONAL HISTORY OF OTHER DISEASES OF 04/01/2018 MENDEL MAGUIRE Ot Z87.891 PERSONAL HISTORY OF NICOTINE DEPENDENCE 04/26/2018 JAMEY ENCISO APRN Ot J45.909 UNSPECIFIED ASTHMA, UNCOMPLICATED 04/26/2018 JAMEY ENCISO APRN Ot R05 COUGH 04/26/2018 JAMEY ENCISO APRN Ot R06.00 DYSPNEA, UNSPECIFIED 04/26/2018 JAMEY ENCISO APRN Ot Z87.19 PERSONAL HISTORY OF OTHER DISEASES OF 04/26/2018 JAMEY ENCISO APRN Ot Z87.891 PERSONAL HISTORY OF NICOTINE DEPENDENCE 2018 MARTHA CASANOVA DO Ot Z01.818 ENCOUNTER FOR OTHER PREPROCEDURAL EXAMIN 06/11/2018 EDILBERTO TIWARI MARTHA D Ot Z01.818 ENCOUNTER FOR OTHER PREPROCEDURAL EXAMIN 06/17/2018 MARTHA CASANOVA DO D Ot J45.909 UNSPECIFIED ASTHMA, UNCOMPLICATED 06/17/2018 EDILBERTO TIWARI, MARTHA D Ot K40.31 UNILATERAL INGUINAL HERNIA, W OBST, W/O 06/17/2018 EDILBERTO TIWARI MARTHA D Ot Z87.891 PERSONAL HISTORY OF NICOTINE DEPENDENCE 06/21/2018 EDILBERTO TIWARI MARTHA D Ot J45.909 UNSPECIFIED ASTHMA, UNCOMPLICATED 06/21/2018 EDILBERTO TIWARI, MARTHA D Ot K40.31 UNILATERAL INGUINAL HERNIA, W OBST, W/O 06/21/2018 EDILBERTO TIWARI MARTHA D Ot Z87.891 PERSONAL HISTORY OF NICOTINE DEPENDENCE 06/21/2018 EDILBERTO TIWARI MARTHA D Ot J45.909 UNSPECIFIED ASTHMA, UNCOMPLICATED 06/21/2018 EDILBERTO TIWARI, MARTHA D Ot K40.31 UNILATERAL INGUINAL HERNIA, W OBST, W/O 06/21/2018 EDILBERTO TIWARI MARTHA D Ot Z87.891 PERSONAL HISTORY OF NICOTINE DEPENDENCE 06/23/2018 EDILBERTO TIWARI MARTHA D Ot J45.909 UNSPECIFIED ASTHMA, UNCOMPLICATED 06/23/2018 EDILBERTO TIWARI, MARTHA D Ot K40.31 UNILATERAL INGUINAL HERNIA, W OBST, W/O 06/23/2018 EDILBERTO TIWARI MARTHA D Ot Z87.891 PERSONAL HISTORY OF NICOTINE DEPENDENCE 07/07/2018 STEPHENIE GOULD, JAMEY E Ot 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 Results Test [...] culture - 03/30/18 13:30 Bacterial throat culture [id number] NRG FREE TEXT EXTERNAL PLUS ABUNDANT NORMAL MARK NRG QUANTITY OF GROWTH Moderate Growth NRG Complete blood count (CBC) with automated white blood cell (WBC) differential - 04/26/18 11:54 Blood leukocytes automated count (number/volume) 8.4 10*3/uL 4.3-11.0 Blood erythrocytes automated count (number/volume) 4.79 10*6/uL 4.35-5.85 Venous blood hemoglobin measurement (mass/volume) 15.6 g/dL 13.3-17.7 Blood hematocrit (volume fraction) 43 % 40-54 Automated erythrocyte mean corpuscular volume 90 [foz_us] 80-99 Automated erythrocyte mean corpuscular hemoglobin (mass per erythrocyte) 33 pg 25-34 Automated erythrocyte mean corpuscular hemoglobin concentration measurement ( mass/volume) 36 g/dL 32-36 Automated erythrocyte distribution width ratio 13.3 % 10.0-14.5 Automated blood platelet count (count/volume) 370 10*3/uL 130-400 Automated blood platelet mean volume measurement 8.6 [foz_us] 7.4-10.4 Automated blood neutrophils/100 leukocytes 54 % 42-75 Automated blood lymphocytes/100 leukocytes 34 % 12-44 Blood monocytes/100 leukocytes 7 % 0-12 Automated blood eosinophils/100 leukocytes 4 % 0-10 Automated blood basophils/100 leukocytes 1 % 0-10 Blood neutrophils automated count (number/volume) 4.5 10*3 1.8-7.8 Blood lymphocytes automated count (number/volume) 2.9 10*3 1.0-4.0 Blood monocytes automated count (number/volume) 0.6 10*3 0.0-1.0 Automated eosinophil count 0.4 10*3/uL 0.0-0.3 Automated blood basophil count (count/volume) 0.0 10*3/uL 0.0-0.1 Comprehensive metabolic panel - 04/26/18 11:54 Serum or plasma sodium measurement (moles/volume) 138 mmol/L 135-145 Serum or plasma potassium measurement (moles/volume) 4.0 mmol/L 3.6-5.0 Serum or plasma chloride measurement (moles/volume) 105 mmol/L 98-107 Carbon dioxide 21 mmol/L 21-32 Serum or plasma anion gap determination (moles/volume) 12 mmol/L 5-14 Serum or plasma urea nitrogen measurement (mass/volume) 10 mg/dL 7-18 Serum or plasma creatinine measurement (mass/volume) 1.01 mg/dL 0.60-1.30 Serum or plasma urea nitrogen/creatinine mass ratio 10 NRG Serum or plasma creatinine measurement with calculation of estimated glomerular filtration rate > NRG Serum or plasma glucose measurement (mass/volume) 158 mg/dL 70-105 Serum or plasma calcium measurement (mass/volume) 9.7 mg/dL 8.5-10.1 Serum or plasma total bilirubin measurement (mass/volume) 0.4 mg/dL 0.1-1.0 Serum or plasma alkaline phosphatase measurement (enzymatic activity/volume) 75 U/L 40-136 Serum or plasma aspartate aminotransferase measurement (enzymatic activity/ volume) 23 U/L 5-34 Serum or plasma alanine aminotransferase measurement (enzymatic activity/volume ) 41 U/L 0-55 Serum or plasma protein measurement (mass/volume) 7.8 g/dL 6.4-8.2 Serum or plasma albumin measurement (mass/volume) 4.5 g/dL 3.2-4.5 CALCIUM CORRECTED 9.3 mg/dL 8.5-10.1 Serum or plasma lithium measurement (moles/volume) - 04/26/18 11:54 BNP level < pg/mL <100.0 Methicillin resistant Staphylococcus aureus (MRSA) screening culture - 06:22 MRSA SCREEN RESULT MRSA ISOLATED NRG Encounters ACCT No. Visit Date/Time Discharge Status Pt. Type Provider Facility Loc./Unit Complaint [id number] 06/17/2018 05:50:00 06/17/2018 11:30:00 DIS Outpatient CASANOVA DO, MARTHA D [facility] RIGHT INGUINAL HERNIA [id number] 2018 05:35:00 2018 11:01:00 DIS Outpatient MARTHA CASANOVA DO [facility] PREOP RIGHT INGUINAL HERNIA [id number] 04/26/2018 11:13:00 04/26/2018 12:39:00 DIS Emergency JAMEY ENCISO APRN [facility] ER COUGH;CONGESTION [id number] 03/30/2018 13:15:00 03/30/2018 14:19:00 DIS Emergency MENDEL MAGUIRE [facility] ER CONGESTION;BUG BITE [id number] 03/29/2017 07:13:00 03/29/2017 08:35:00 DIS Emergency GERMAINE GRUBBS MD [facility] ER POSS POSION [place] ON FACE [id number] 02/27/2017 10:56:00 02/27/2017 23:59:59 CLS Outpatient MINE GOULD, KERI [facility] RAD M51.19 [id number] 10/27/2016 09:54:00 10/27/2016 15:06:00 DIS Emergency YUSUF CHRISTENSEN [facility] ER ABD PAIN/SPASMS [id number] 05/27/2016 10:28:00 05/27/2016 23:59:59 CLS Outpatient ZACARIAS PAYNE [facility] QUICK BACK PAIN [id number] 09/28/2015 12:28:00 09/28/2015 23:59:59 CLS Outpatient CHE URRUTIA MD [facility] RAD CHRONIC SINUSITIS [id number] 08/17/2015 09:44:00 08/17/2015 16:35:00 DIS Outpatient GAB PENA MD [facility] RIGHT INGUINAL HERNIA [id number] 08/15/2015 05:33:00 08/15/2015 23:59:59 CLS Outpatient GAB PENA MD [facility] PREOP RIGHT INGUINAL HERNIA [id number] 10/25/2014 10:40:00 10/25/2014 23:59:59 CLS Outpatient JAMEY CASIANO MD [facility] RAD CHRONIC SINUSITIS [id number] 10/02/2015 15:11:00 Document Registration [id number] 10/02/2015 15:11:00 Document Registration [id number] 10/02/2015 15:11:00 Document Registration [id number] 10/02/2015 15:11:00 Document Registration [id number] 10/02/2015 15:11:00 Document Registration [id number] 10/25/2014 15:45:00 Document Registration [id number] 10/25/2014 15:45:00 Document Registration [id number] 10/25/2014 15:45:00 Document Registration [id number] 12/15/2011 20:56:00 Document Registration [id number] 10/31/2011 11:24:00 Document Registration [id number] 10/25/2011 01:49:00 Document Registration [id number] 07/16/2011 05:44:00 Document Registration [id number] 06/06/2010 12:59:00 Document Registration [id number] 05/16/2010 13:41:00 Document Registration [id number] 04/16/2010 13:21:00 Document Registration [id number] 09/26/2009 00:12:00 Document Registration [id number] 04/12/2009 09:38:00 Document Registration [id number] 01/18/2009 10:37:00 Document Registration [id number] 11/01/2008 12:30:00 Document Registration [id number] 10/18/2008 08:18:00 Document Registration
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
[2018-08-04 11:24] VITALS: BP 139/100
== END | disposition home or self-care (01) ==
LOC: EDUNIT# 09:57 → ER 09:58
DX: L72.3 Sebaceous cyst (principal); J45.909 Unspecified asthma, uncomplicated; Z87.19 Personal history of other diseases of the digestive system; Z88.2 Allergy status to sulfonamides; Z87.891 Personal history of nicotine dependence; Z98.890 Other specified postprocedural states
CPT/HCPCS: 87070; 87077; 87205; 99282

== ENCOUNTER → 2020-10-08 | Outpatient (CLI) | payer MEDICARE ==
[~2020-10-08] MED LIST changes: -DOXY100T19 PO; +DOXY100T31 PO; -LIDOCAINE 1% INJ 20 ML 20 ML VIAL INJ ONE
--- NOTE | 2020-10-08 16:36 | Diagnostic Imaging Report ---
EXAMINATION: Chest 2 views. HISTORY: Chest pain. COMPARISON: 04/26/2018 FINDINGS: The lungs are clear without edema or pneumonia. No pleural effusion or pneumothorax. Heart size is normal. IMPRESSION: 1. Clear lungs. Dictated by: Dictated on workstation # [id number]
== END ==
LOC: RAD 15:28
PROVIDERS: ATTEND Surgery
DX: R07.9 Chest pain, unspecified (principal)
CPT/HCPCS: 71046

== ENCOUNTER → 2020-11-26 | Outpatient (CLI) | payer MEDICARE ==
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
== END ==
LOC: RAD 16:13
PROVIDERS: ATTEND Surgery
DX: M54.2 Cervicalgia (principal); M25.512 Pain in left shoulder; M25.511 Pain in right shoulder
CPT/HCPCS: 71046; 72040

== ENCOUNTER 2020-12-25 05:36 | Outpatient (CLI) | payer MEDICARE ==
[~2020-12-25] VITALS: Ht 170.2 cm; Wt 104.3 kg
[2020-12-25] MEDS ORDERED: ALBU90AE IH (14:58)
[2020-12-25] MEDS ORDERED: AMIT50TA3 PO (14:58)
[2020-12-25] MEDS ORDERED: MONT10TA32 PO (14:58)
[2020-12-25] MEDS ORDERED: ROSU10TA28 PO (14:58)
[2020-12-25] MEDS ORDERED: PROP20TA5 PO (14:58)
== END 2020-12-26 10:18 | disposition home or self-care (01) ==
LOC: PREOP 05:36
PROVIDERS: ATTEND Surgery
DX: Z01.818 Encounter for other preprocedural examination (principal)

== ENCOUNTER 2021-01-01 07:46 | Day surgery (SDC) | payer MEDICARE ==
[~2021-01-01] VITALS: Ht 170 cm; Wt 104.5 kg
[~2021-01-01 07:46] MED LIST changes: +ALBU90AE IH; +AMIT50TA3 PO; +MONT10TA32 PO; +PROP20TA5 PO; +ROSU10TA28 PO
[2021-01-01] MEDS ORDERED: LACTATED RINGERS 1,000 ML IV ONE (07:51)
[2021-01-01] MEDS ORDERED: LACTATED RINGERS 1,000 ML IV STA (07:55)
[2021-01-01] MEDS ORDERED: PROPOFOL INJECTION 50 ML IV ONE (08:04)
[2021-01-01] MEDS ORDERED: MIDAZOLAM 2 MG/2 ML (VERSED) VIAL ONE (08:04)
[2021-01-01 08:06] VITALS: BP 154/106
--- NOTE | 2021-01-01 10:16 | Progress Note-Post Operative ---
Post-Operative Progess Note Surgeon (s)/Gold Plater (s) Surgeon MARTHA CASANOVA DO Gold Plater: na Pre-Operative Diagnosis family history colon cancer, screening colonoscopy Post-Operative Diagnosis colon polyps x 3 Procedure & Operative Findings Date of Procedure 01/01/21 Procedure Performed/Findings colonoscopy c hot bx polypectomy x 3 Anesthesia Type per mda Estimated Blood Loss Estimated blood loss (mL): none Specimens/Packing Specimens Removed colon polyps MARTHA CASANOVA DO Jan 01, 2021 10:16
--- NOTE | 2021-01-01 10:17 | Discharge Inst-Simple/Standard ---
Discharge Inst-Standard Patient Instructions/Follow Up Plan of Care/Instructions/FU: 2 weeks Shahab Activity as Tolerated: Yes Discharge Diet: Regular Diet MARTHA CASANOVA DO Jan 01, 2021 10:17
[2021-01-01 10:20] VITALS: BP 156/74
[2021-01-01 10:25] VITALS: BP 160/80
[2021-01-01 10:45] VITALS: BP 149/107
[2021-01-01 10:51] VITALS: BP 149/107
--- NOTE | 2021-01-01 12:35 | Anesthesia-General Post-Op ---
MAC Patient Condition Mental Status/LOC: Same as Preop Cardiovascular: Satisfactory Nausea/Vomiting: Absent Respiratory: Satisfactory Pain: Controlled Complications: Absent Post Op Complications Complications None Follow Up Care/Instructions Patient Instructions None needed. Anesthesiology Discharge Order Discharge Order Patient was seen this morning after the procedure and he was doing well, no complaints, stable vital signs, no apparent adverse anesthesia problems. ASHLEY CONTRERAS DO Jan 01, 2021 12:35
--- NOTE | 2021-01-01 15:46 | OPERATIVE REPORT ---
DATE OF SERVICE: 01/01/2021 PREOPERATIVE DIAGNOSIS: Family history of colon cancer, screening colonoscopy. POSTOPERATIVE DIAGNOSIS: Colon polyps. PROCEDURE: Colonoscopy with hot biopsy polypectomy x3. SURGEON: Martha Gudino DO ANESTHESIA: Per MDA. ESTIMATED BLOOD LOSS: None. COMPLICATIONS: None. INDICATIONS: The patient is a 50-year-old male needing screening colonoscopy. He understands risks and benefits of procedure and wished to proceed with procedure. Consent was signed in the chart. DESCRIPTION OF PROCEDURE: The patient was taken to the endoscopy suite, placed in left lateral recumbent position. Timeout was performed. Digital rectal exam was performed. A small anal tag present. No palpable polyps, masses or ulcerations. Scope was inserted in the rectum and advanced all the way to cecum with minimal difficulty. Prep was adequate. Scope was then slowly retracted back. There were no polyps, masses or ulcerations in the cecum. In the ascending colon, two small polyps were present, which hot biopsy polypectomy was performed. Scope was then continuously slowly retracted back. No polyps, masses or ulcerations within the remainder of the ascending, transverse, descending and sigmoid colon. Once in the rectum, small polyp was present, which hot biopsy polypectomy was performed. Scope was then retroflexed noting no other pathology. Scope was returned to its normal position, slowly withdrawn until completely removed. The patient tolerated procedure well without any complications, taken to recovery room in stable condition. RECOMMENDATIONS: The patient will need repeat colonoscopy in 5 years. Any issues before that be seen at that time. The patient will follow up in the office to discuss pathology. Job ID: [id number] DocumentID: [id number] Dictated Date: 01/01/2021 10:19:39 Engineering Inspector Date: 01/01/2021 15:12:35 Dictated By: MARTHA GUDINO DO
== END 2021-01-01 10:55 | disposition home or self-care (01) ==
LOC: ENDO 07:46
PROVIDERS: ATTEND Surgery
DX: Z12.11 Encounter for screening for malignant neoplasm of colon (principal); D12.2 Benign neoplasm of ascending colon; K62.1 Rectal polyp; K64.4 Residual hemorrhoidal skin tags; T14.90XA Injury, unspecified, initial encounter; M54.2 Cervicalgia; I10 Essential (primary) hypertension; J45.909 Unspecified asthma, uncomplicated; J44.9 Chronic obstructive pulmonary disease, unspecified; Z87.891 Personal history of nicotine dependence; Z79.899 Other long term (current) drug therapy; Z80.0 Family history of malignant neoplasm of digestive organs
CPT/HCPCS: 88305

== ENCOUNTER 2021-07-12 10:09 | Emergency (ER) | payer MEDICARE ==
[~2021-07-12] VITALS: Ht 170 cm; Wt 99.0 kg
[~2021-07-12 10:09] MED LIST changes: +CYCL10TA25 PO; +MONT-40 PO; -MONT10TA32 PO
[2021-07-12] MEDS ORDERED: AMOX-358 PO (10:45)
--- NOTE | 2021-07-12 10:47 | ED Cough/URI ---
General Chief Complaint: Cough/Cold/Flu Symptoms Stated Complaint: COUGH,CONGESTION,CP Nursing Triage Note: ARRIVED VIA AMB TO ROOM 08. NEG COVID TEST TODAY AT [facility] THRU. STATES LIKE HE HAS BRONCHITIS. Source: patient Exam Limitations: no limitations History of Present Illness Date Seen by Provider: Jul 12, 2021 Time Seen by Provider: 10:30 Initial Comments 51-year-old male presents to the emergency room today with a chief complaint of upper respiratory congestion, sinus drainage, productive cough of yellow-brown sputum. Patient states he has been using his inhaler and his nebulizer without much relief of symptoms. He tried some Robitussin but found that it increased his blood pressure. He endorses a "burning type" chest discomfort in the left chest with cough. No associated nausea, no diaphoresis no radiation of the pain. No history of coronary artery disease. He denies fevers or chills. He does have mild sore throat. He tested at [facility] this morning for COVID and was negative. He is vaccinated with a booster. He is a non-smoker has a history of "asthma". Has been taking his blood pressure medications over the last week more regularly. Has a follow-up a ppointment scheduled with his primary care doctor next Thursday. All other review of systems reviewed and negative except as stated. Timing/Duration: week Severity/Quality: productive cough, sputum Prior Episodes/Possible Cause: occasional episodes Modifying Factors: Improves With Albuterol Inhaler, Improves With Albuterol Nebulizer Associated Symptoms: chest pain/soreness (left sided "burning"), nasal congestion Allergies and Home Medications Allergies Coded Allergies: Sulfa (Sulfonamide Antibiotics) (Verified Allergy, Mild, HIVES, 06/10/18) Patient Home Medication List Home Medication List Reviewed: Yes Albuterol Sulfate (Proair Respiclick) 90 Mcg Aer.pow.ba, 1-2 PUFF IH PRN, (Reported) Entered as Reported by: JAXSON ROGERS on 12/25/20 1458 Amitriptyline HCl (Amitriptyline HCl) 50 Mg Tablet, 50 MG PO HS, (Reported) Entered as Reported by: JAXSON ROGERS on 12/25/20 1458 Amoxicillin/Potassium Clav (Augmentin 875-125 Tablet) 1 Each Tablet, 1 EACH PO BID Prescribed by: DIONNA CONNOR on 07/12/21 1045 Montelukast Sodium (Montelukast Sodium) 10 Mg Tablet, 10 MG PO HS, (Reported) Entered as Reported by: JAXSON ROGERS on 12/25/20 1458 Propranolol HCl (Propranolol HCl) 20 Mg Tablet, 20 MG PO TID, (Reported) Entered as Reported by: JAXSON ROGERS on 12/25/20 1458 Rosuvastatin Calcium (Rosuvastatin Calcium) 10 Mg Tablet, 20 MG PO DAILY, (Reported) Entered as Reported by: JAXSON ROGERS on 12/25/20 1458 Review of Systems Review of Systems Constitutional: see HPI EENTM: ear pain, nose congestion Respiratory: cough, phlegm Cardiovascular: chest pain (left sided "burning") Gastrointestinal: no symptoms reported Genitourinary: no symptoms reported Musculoskeletal: no symptoms reported Skin: no symptoms reported Psychiatric/Neurological: No Symptoms Reported All Other Systems Reviewed Negative Unless Noted: Yes Past Fbbdlos-Nrvoar-Xyrpph Hx Patient Social History Smoking Status: Former Smoker Substance use?: No Alcohol Use?: No Immunizations Up To Date Tetanus Booster (TDap): Unknown PED Vaccines UTD: No COVID19 Vaccine Medical Transcriber: LIA FITZGERALD MODERNA Seasonal Allergies Seasonal Allergies: Yes Past Medical History Surgeries: Yes (left leg fx, left ankle crushed, right leg fx, umb hernia) Abdominal, Orthopedic Respiratory: Yes Asthma Cardiac: Yes Hypertension Neurological: No Reproductive Disorders: No Sexually Transmitted Disease: No Genitourinary: No Gastrointestinal: Yes Abdominal Hernia Musculoskeletal: Yes (CRUSH INJURY TO LEFT ANKLE) Chronic Back Pain Endocrine: No HEENT: No Loss of Vision: Denies Hearing Impairment: Denies Cancer: No Psychosocial: No Integumentary: No (hx of frequent superficial skin infections) Blood Disorders: No Adverse Reaction/Blood Tranf: No Family Medical History No Pertinent Family Hx Physical Exam Vital Signs - First Documented 07/12/21 10:18 Temp 36.0 Pulse 74 Resp 16 B/P (MAP) 188/119 (142) Pulse Ox 97 O2 Delivery Room Air Capillary Refill : Less Than 3 Seconds Height: 5'8.00" Weight: 215lbs. 4.0oz. 97.672199hc; 34.00 BMI Method:Stated General Appearance: WD/WN, no apparent distress Eyes: Bilateral Eye Normal Inspection, Bilateral Eye PERRL, Bilateral Eye EOMI HEENT: normal ENT inspection, other (pharyngeal erythema, prominent uvula) Neck: non-tender, full range of motion, supple Respiratory: lungs clear, normal breath sounds, no respiratory distress, no accessory muscle use Cardiovascular: regular rate, rhythm Gastrointestinal: non tender, soft Extremities: normal range of motion, non-tender, normal inspection, no pedal edema, no calf tenderness, normal capillary refill Neurologic/Psychiatric: alert, normal mood/affect, oriented x 3 Skin: normal color, warm/dry Progress/Results/Core Measures Suspected Sepsis SIRS Temperature: Pulse: 74 Respiratory Rate: 16 Blood Pressure 188 /119 Mean: 142 Results/Orders Vital Signs/I&O 07/12/21 07/12/21 10:18 10:51 Temp 36.0 Pulse 74 Resp 16 B/P (MAP) 188/119 (142) 189/118 Pulse Ox 97 O2 Delivery Room Air Capillary Refill : Less Than 3 Seconds Blood Pressure Mean: 142 Departure Impression Primary Impression: Bronchitis Additional Impression: High blood pressure Qualified Codes: I10 - Essential (primary) hypertension Disposition: HOME, SELF-CARE Condition: Stable Departure-Patient Inst. Decision time for Depature: 10:44 Referrals: RATNA BONILLA MD (PCP) Primary Care Physician JOSE MENDOZA (Family) Primary Care Physician Patient Instructions: Bronchitis, Adult ED Add. Discharge Instructions: Drink plenty of fluids to stay well-hydrated. Avoid caffeine and salt laden soda. Continue to use your albuterol inhaler 2 puffs every 4-6 hours as needed for shortness of breath. Coricidin HBP and Mucinex are good for congestion, sputum production. Safe for high blood pressure Continue your blood pressure daily while you are sick. Take Augmentin, 875 mg twice a day for 7 days. Return to the emergency room for fever, worsening cough, congestion developing shortness of breath or any other emergent concerning symptoms. Follow-up with your primary care doctor as scheduled Scripts Hydrocodone/Acetaminophen (Hydrocodone-Acetamn 7.5-325/15) 118 Ml Solution 5 ML PO Q6H PRN for cough/pain, #60 ML Prov: DIONNA CONNOR MD 07/12/21 Amoxicillin/Potassium Clav (Augmentin 875-125 Tablet) 1 Each Tablet 1 EACH PO BID, #14 TAB 0 Refills Prov: DIONNA CONNOR MD 07/12/21 DIONNA CONNOR MD Jul 12, 2021 10:47
[2021-07-12 10:51] VITALS: BP 189/118
[2021-07-12] MEDS ORDERED: HYDR118S10 PO (13:54)
== END 2021-07-12 10:51 | disposition home or self-care (01) ==
LOC: EDUNIT# 10:09 → ER 10:11
DX: J40 Bronchitis, not specified as acute or chronic (principal); I10 Essential (primary) hypertension; Z87.891 Personal history of nicotine dependence
CPT/HCPCS: 99281

== ENCOUNTER → 2021-07-30 | Outpatient (CLI) | payer MEDICARE ==
[~2021-07-30] MED LIST changes: +AMOX-358 PO; +HYDR118S10 PO
--- NOTE | 2021-07-30 10:38 | Diagnostic Imaging Report ---
INDICATION: PERSISTENT COUGH. TECHNIQUE: Two view chest 10:22 AM CORRELATION STUDY: 11/26/2020 FINDINGS: The heart size, mediastinal configuration and pulmonary vasculature are within normal limits. The lungs are clear with no consolidating infiltrate at follow-up. There is no significant pleural effusion or pneumothorax. Small granuloma lateral left lung. Azygos lobe. Visualized osseous structures are unremarkable. IMPRESSION: 1. Negative for acute abnormality of the chest. Dictated by: Dictated on workstation # [id number]
== END ==
LOC: RAD 09:59
PROVIDERS: ATTEND Family Medicine
DX: R05.3 Chronic cough (principal)
CPT/HCPCS: 71046

== ENCOUNTER 2021-09-20 15:09 | Emergency (ER) | payer MEDICARE ==
[~2021-09-20] VITALS: Ht 172 cm; Wt 104.0 kg
--- NOTE | 2021-09-20 15:35 | ED General ---
General Chief Complaint: General Problems/Pain Stated Complaint: COUGH,SOA,BODY ACHES,CONGESTION Nursing Triage Note: OVER THE LAST TWO MONTHS PT HAS BEEN SEEN THREE TIMES BY YARELI MEEK AND HIS DR. MALONE WITH UVULITIS, STREP, AND PNEUMONIA AND PUT ON ABX EACH TIME. PT STATES HE CONTINUES TO FEEL LIKE CRAP. STATES HE ALSO HAS BEEN TESTED FOR COVID MULTIPLE TIMES. Source of Information: Patient Exam Limitations: No Limitations History of Present Illness Date Seen by Provider: Sep 20, 2021 Time Seen by Provider: 15:40 Initial Comments Patient is a 51-year-old male with nasal congestion rhinorrhea, sore throat and postnasal drip for the past 3 days with eye watering body aches. History of se asonal allergies. Patient is taking Mucinex and taking his nasal lavage with some relief. Denies sore throat, difficulty swallowing shortness of breath. No other acute symptoms or complaints. Timing/Duration: 1-3 Hours Severity: Mild Modifying Factors: improves with Other Associated Systoms: Other Allergies and Home Medications Allergies Coded Allergies: Sulfa (Sulfonamide Antibiotics) (Verified Allergy, Mild, HIVES, 06/10/18) Patient Home Medication List Home Medication List Reviewed: Yes Amitriptyline HCl (Amitriptyline HCl) 50 Mg Tablet, 50 MG PO HS, (Reported) Entered as Reported by: JAXSON ROGERS on 12/25/201457 Montelukast Sodium (Montelukast Sodium) 10 Mg Tablet, 10 MG PO HS, (Reported) Entered as Reported by: JAXSON ROGERS on 12/25/201457 Propranolol HCl (Propranolol HCl) 20 Mg Tablet, 20 MG PO TID, (Reported) Entered as Reported by: JAXSON ROGERS on 12/25/201457 Rosuvastatin Calcium (Rosuvastatin Calcium) 10 Mg Tablet, 20 MG PO DAILY, (Reported) Entered as Reported by: JAXSON ROGERS on 12/25/201457 Discontinued Medications Albuterol Sulfate (Proair Respiclick) 90 Mcg Aer.pow.ba, 1-2 PUFF IH PRN, (Reported) Discontinued Reason: No Longer Taking Entered as Reported by: JAXSON ROGERS on 12/25/201457 Last Action: Discontinued Amoxicillin/Potassium Clav (Augmentin 875-125 Tablet) 1 Each Tablet, 1 EACH PO BID Discontinued Reason: No Longer Taking Prescribed by: DIONNA Steven NIKOLAS on 07/12/21 1045 Last Action: Discontinued Hydrocodone/Acetaminophen (Hydrocodone-Acetamn 7.5-325/15) 118 Ml Solution, 5 ML PO Q6H PRN for cough/pain Discontinued Reason: No Longer Taking Prescribed by: DIONNA Harris NIKOLAS on 07/12/21 1355 Last Action: Discontinued Review of Systems Review of Systems Constitutional: see HPI EENTM: see HPI Respiratory: see HPI Cardiovascular: see HPI Genitourinary: see HPI Musculoskeletal: see HPI Skin: see HPI Psychiatric/Neurological: See HPI Hematologic/Lymphatic: See HPI Immunological/Allergic: see HPI Past Yrgreax-Onwity-Qlqqjd Hx Patient Social History Tobacco Use?: No Immunizations Up To Date Tetanus Booster (TDap): Unknown PED Vaccines UTD: No Seasonal Allergies Seasonal Allergies: Yes Past Medical History Surgeries: Yes (left leg fx, left ankle crushed, right leg fx, umb hernia) Abdominal, Orthopedic Respiratory: Yes Asthma Cardiac: Yes Hypertension Neurological: No Reproductive Disorders: No Sexually Transmitted Disease: No Genitourinary: No Gastrointestinal: Yes Abdominal Hernia Musculoskeletal: Yes (CRUSH INJURY TO LEFT ANKLE) Chronic Back Pain Endocrine: No HEENT: No Loss of Vision: Denies Hearing Impairment: Denies Cancer: No Psychosocial: No Integumentary: No (hx of frequent superficial skin infections) Blood Disorders: No Adverse Reaction/Blood Tranf: No Family Medical History No Pertinent Family Hx Physical Exam Vital Signs Vital Signs - First Documented 09/20/21 15:25 Temp 36.3 Pulse 85 Resp 16 B/P (MAP) 181/113 (135) Pulse Ox 97 O2 Delivery Room Air Capillary Refill : Less Than 3 Seconds Height, Weight, BMI Height: 5'8.00" Weight: 215lbs. 4.0oz. 97.001086es; 35.00 BMI Method:Stated General Appearance: No Apparent Distress, WD/WN, Anxious Eyes: Bilateral Eye Normal Inspection, Bilateral Eye PERRL, Bilateral Eye EOMI HEENT: PERRL/EOMI, Other (Nasal congestion, rhinorrhea.) Neck: Non Tender, Supple Respiratory: Lungs Clear Gastrointestinal: Non Tender, Soft Focused Exam Sepsis Stage: Ruled Out Progress/Results/Core Measures Suspected Sepsis SIRS Temperature: Pulse: 85 Respiratory Rate: 16 Blood Pressure 181 /113 Mean: 135 Results/Orders Vital Signs/I&O 09/20/21 15:25 Temp 36.3 Pulse 85 Resp 16 B/P (MAP) 181/113 (135) Pulse Ox 97 O2 Delivery Room Air Capillary Refill : Less Than 3 Seconds Blood Pressure Mean: 135 Departure Communication (Admissions) Symptoms consistent with seasonal allergies Impression Primary Impression: Seasonal allergies Disposition: 01 HOME, SELF-CARE Condition: Stable Departure-Patient Inst. Decision time for Depature: 16:16 Referrals: RATNA BONILLA MD (PCP) Primary Care Physician JOSE MENDOZA (Family) Primary Care Physician Patient Instructions: Seasonal Allergies (DC) Add. Discharge Instructions: Please take newly prescribed medications as directed and follow-up with your PCP in 5 to 10 days if symptoms persist All discharge instructions reviewed with patient and/or family. Voiced understanding. Scripts Triamcinolone Acetonide (Nasacort) 10.8 Ml [place] 10.8 ML NS BID, #1 EA Prov: STEVEN MESSER DO 09/20/21 Fexofenadine HCl (Soheila Allergy) 60 Mg Tablet 60 MG PO BID, #60 TAB Prov: STEVEN MESSER DO 09/20/21 STEVEN MESSER DO Sep 20, 2021 15:35
[2021-09-20] MEDS ORDERED: FEXO-14 PO (16:19)
[2021-09-20] MEDS ORDERED: TRIA10.8 NS (16:19)
[2021-09-20 16:22] VITALS: BP 166/101
== END 2021-09-20 16:22 | disposition home or self-care (01) ==
LOC: EDUNIT# 15:09 → ER FS 15:11
DX: J30.2 Other seasonal allergic rhinitis (principal)
CPT/HCPCS: 99281

== ENCOUNTER 2021-09-23 15:32 | Emergency (ER) | payer MEDICARE ==
[~2021-09-23] VITALS: Ht 170.2 cm; Wt 104.3 kg
[~2021-09-23 15:32] MED LIST changes: +FEXO-14 PO; +TRIA10.8 NS
[2021-09-23] MEDS ORDERED: LORazepam 0.5 MG (ATIVAN) TABLET PO ONE (16:00)
--- NOTE | 2021-09-23 16:02 | ED General ---
General Chief Complaint: Cough/Cold/Flu Symptoms Stated Complaint: DEBRA ATTACK Nursing Triage Note: PT AMB TO RM 6 WITH COMPLAINT OF COUGH AND NOT FEELING WELL. PT HAS BEEN SICK INTERMITTENTLY FOR OVER A MONTH. Source of Information: Patient Exam Limitations: No Limitations History of Present Illness Date Seen by Provider: Sep 23, 2021 Time Seen by Provider: 15:58 Initial Comments To ER by private vehicle from home accompanied by his with concerns of an asthma attack. For about 2 years ever since getting the Covid vaccines he has had frequent recurrent upper respiratory infections. Recently finished a course of Augmentin for walking pneumonia prescribed by primary care Dr. Gr. No fevers though he does report that he sometimes has sudden onset of chills lasting for about 10 to 15 minutes and then they resolve on their own. He states that he does get anxious despite his BuSpar. He states that he has a general sensation of being unwell. Denies any chest pain. The episode that brought him to ER today was a coughing fit that would not stop. However it has resolved prior to arrival to ER. He was in [place] emergency room last week for similar symptoms. He states he feels like every breath "could be his last". He was talking to his mother about his symptoms and she mentioned that she was on an SSRI and that a medication of that class could be very helpful for him as well. He does not smoke or drink alcohol. He lives at home with his and for the past year his mother has been living in their living room. He has been under a lot of stress according to the . Timing/Duration: Intermittent Severity: Moderate Associated Systoms: Denies Symptoms Allergies and Home Medications Allergies Coded Allergies: Sulfa (Sulfonamide Antibiotics) (Verified Allergy, Mild, HIVES, 06/10/18) Patient Home Medication List Home Medication List Reviewed: Yes Amitriptyline HCl (Amitriptyline HCl) 50 Mg Tablet, 50 MG PO HS, (Reported) Entered as Reported by: JAXSON ROGERS on 12/25/20 1458 Fexofenadine HCl (Soheila Allergy) 60 Mg Tablet, 60 MG PO BID Prescribed by: STEVEN MESSER on 09/20/21 1619 Montelukast Sodium (Montelukast Sodium) 10 Mg Tablet, 10 MG PO HS, (Reported) Entered as Reported by: JAXSON ROGERS on 12/25/20 1458 Propranolol HCl (Propranolol HCl) 20 Mg Tablet, 20 MG PO TID, (Reported) Entered as Reported by: JAXSON ROGERS on 12/25/20 1458 Rosuvastatin Calcium (Rosuvastatin Calcium) 10 Mg Tablet, 20 MG PO DAILY, (Reported) Entered as Reported by: JAXSON ROGERS on 12/25/20 1458 Triamcinolone Acetonide (Nasacort) 10.8 Ml [place], 10.8 ML NS BID Prescribed by: STEVEN MESSER on 09/20/21 1619 Discontinued Medications Albuterol Sulfate (Proair Respiclick) 90 Mcg Aer.pow.ba, 1-2 PUFF IH PRN, (Reported) Discontinued Reason: No Longer Taking Entered as Reported by: JAXSON ROGERS on 12/25/20 1458 Amoxicillin/Potassium Clav (Augmentin 875-125 Tablet) 1 Each Tablet, 1 EACH PO BID Discontinued Reason: No Longer Taking Prescribed by: DIONNA CONNOR on 07/12/21 1045 Hydrocodone/Acetaminophen (Hydrocodone-Acetamn 7.5-325/15) 118 Ml Solution, 5 ML PO Q6H PRN for cough/pain Discontinued Reason: No Longer Taking Prescribed by: DIONNA CONNOR on 07/12/21 1355 Review of Systems Review of Systems Constitutional: see HPI, chills, malaise EENTM: see HPI Respiratory: see HPI, cough, short of breath Cardiovascular: no symptoms reported; No chest pain Genitourinary: no symptoms reported Musculoskeletal: no symptoms reported Skin: no symptoms reported Psychiatric/Neurological: No Symptoms Reported Hematologic/Lymphatic: No Symptoms Reported Immunological/Allergic: no symptoms reported Past Oguzvqo-Vsnura-Xinihs Hx Patient Social History Tobacco Use?: No Use of E-Cig and/or Vaping dev: No Substance use?: No Alcohol Use?: Yes Alcohol Frequency: Rarely Pt feels they are or have been: No Immunizations Up To Date Tetanus Booster (TDap): Unknown PED Vaccines UTD: No First/Initial COVID19 Vaccinat: 06/25 Second COVID19 Vaccination Toni: 06/25 Third COVID19 Vaccination Date: 06/25 Seasonal Allergies Seasonal Allergies: Yes Past Medical History Surgeries: Yes (left leg fx, left ankle crushed, right leg fx, umb hernia) Abdominal, Orthopedic Respiratory: Yes Asthma Cardiac: Yes Hypertension Neurological: No Reproductive Disorders: No Sexually Transmitted Disease: No Genitourinary: No Gastrointestinal: Yes Abdominal Hernia Musculoskeletal: Yes (CRUSH INJURY TO LEFT ANKLE) Chronic Back Pain Endocrine: No HEENT: No Loss of Vision: Denies Hearing Impairment: Denies Cancer: No Psychosocial: No Integumentary: No (hx of frequent superficial skin infections) Blood Disorders: No Adverse Reaction/Blood Tranf: No Family Medical History No Pertinent Family Hx Physical Exam Vital Signs Vital Signs - First Documented 09/23/21 15:40 Pulse 94 Resp 20 B/P (MAP) 171/111 (131) Pulse Ox 98 O2 Delivery Room Air Capillary Refill : Less Than 3 Seconds Height, Weight, BMI Height: 5'8.00" Weight: 215lbs. 4.0oz. 97.998015cq; 36.00 BMI Method:Stated General Appearance: No Apparent Distress, WD/WN, Chronically ill Eyes: Bilateral Eye Normal Inspection, Bilateral Eye PERRL, Bilateral Eye EOMI Neck: Full Range of Motion, Normal Inspection Respiratory: Normal Breath Sounds, No Accessory Muscle Use, No Respiratory Distress, Other (Lungs are clear with good air movement no wheezing oxygen sa turation 99% room air. There is no accessory muscle use or tachypnea. He speaks in full sentences.) Cardiovascular: Regular Rate, Rhythm, Normal Peripheral Pulses Gastrointestinal: Normal Bowel Sounds, Non Tender, Soft Extremity: Normal Capillary Refill, Normal Inspection Neurologic/Psychiatric: Alert, Oriented x3 Skin: Normal Color, Warm/Dry Progress/Results/Core Measures Suspected Sepsis SIRS Temperature: Pulse: 94 Respiratory Rate: 20 Blood Pressure 171 /111 Mean: 131 Results/Orders My Orders Orders - JAMEY ENCISO APRN Bnp [place] (09/23/21 15:57) Thyroid Stimulating Hormone (09/23/21 15:57) Free T4 (Free Thyroxine) (09/23/21 15:57) Cbc With Automated Diff (09/23/21 15:57) Comprehensive Metabolic Panel (09/23/21 15:57) Ekg Tracing (09/23/21 15:57) Troponin I [place] (09/23/21 15:57) Chest 1 View, Ap/Pa Only (09/23/21 15:57) Procalcitonin (Pct) (09/23/21 15:57) Lorazepam Tablet (Ativan Tablet) (09/23/21 16:00) Medications Given in ED Current Medications Medications Dose Ordered Sig/Padmini Route Start Time Stop Time Status Last Admin Dose Admin Lorazepam 0.5 mg ONCE ONCE PO 09/23/21 16:00 09/23/21 16:01 DC 09/23/21 16:07 0.5 MG Vital Signs/I&O 09/23/21 15:40 Pulse 94 Resp 20 B/P (MAP) 171/111 (131) Pulse Ox 98 O2 Delivery Room Air Capillary Refill : Less Than 3 Seconds Blood Pressure Mean: 131 Departure Communication (Admissions) Family Conversation NAME: JAVID ROSARIO [facility] REC#: [id number] PT STATUS: REG ER : 1970 PHYSICIAN: JAMEY ENCISO APRN ADMIT DATE: 09/23/21/ER Draft Date of Exam:09/23/21 CHEST 1 VIEW, AP/PA ONLY INDICATION: Chest pain, fatigue. COMPARISON: 07/30/2021. FINDINGS: A single view of the chest demonstrates clear lungs bilaterally. The heart is normal. There is no pneumothorax. The osseous structures are normal. IMPRESSION: Negative chest. Dictated on workstation # [id number] Dict: 09/23/21 1618 Trans: 09/23/21 1620 [id number] Interpreted by: JOANN MENDOZA Electronically signed by: EKG shows sinus rhythm normal intervals no ectopy no ST segment changes 1740-he states that he feels much better after the 0.5 mg lorazepam. We will discharged home with a prescription for this. I discussed with him the need to not take this for work, not drive for about 6 hours afterwards and the addictive potential of it. He will talk to his primary care provider later this week about starting an SSRI. Impression Primary Impression: Anxiety Additional Impression: Recurrent respiratory infection Disposition: HOME, SELF-CARE Condition: Stable Departure-Patient Inst. Decision time for Depature: 17:40 Referrals: RATNA GR MD (PCP) Primary Care Physician JOSE MENDOZA (Family) Primary Care Physician Patient Instructions: Anxiety, Adult (DC) Scripts Lorazepam (Ativan) 0.5 Mg Tablet 0.5 MG PO DAILY PRN for ANXIETY for 7 Days, #10 TAB Prov: JAMEY ENCISO APRN 09/23/21 JAMEY ENCISO APRN Sep 23, 2021 16:02
[2021-09-23 16:09] LABS: BASOPHILS # (AUTO) 0.1 10^3/uL (0.0-0.1); BASOPHILS % (AUTO) 1 % (0-10); EOSINOPHILS # (AUTO) 0.3 10^3/uL (0.0-0.3); EOSINOPHILS % (AUTO) 4 % (0-10); HEMATOCRIT 43 % (40-54); HEMOGLOBIN 15.3 g/dL (13.3-17.7); LYMPHOCYTES # (AUTO) 2.9 10^3/uL (1.0-4.0); LYMPHOCYTES % (AUTO) 35 % (12-44); MEAN CORPUSCULAR HEMOGLOBIN 31 pg (25-34); MEAN CORPUSCULAR HGB CONC 35 g/dL (32-36); MEAN CORPUSCULAR VOLUME 89 fL (80-99); MEAN PLATELET VOLUME 8.9 fL (9.0-12.2); MONOCYTES # (AUTO) 0.8 10^3/uL (0.0-1.0); MONOCYTES % (AUTO) 10 % (0-12); NEUTROPHILS # (AUTO) 4.2 10^3/uL (1.8-7.8); NEUTROPHILS % (AUTO) 51 % (42-75); PLATELET COUNT 332 10^3/uL (130-400); WHITE BLOOD COUNT 8.3 10^3/uL (4.3-11.0)
--- NOTE | 2021-09-23 16:20 | Diagnostic Imaging Report ---
INDICATION: Chest pain, fatigue. COMPARISON: 07/30/2021. FINDINGS: A single view of the chest demonstrates clear lungs bilaterally. The heart is normal. There is no pneumothorax. The osseous structures are normal. IMPRESSION: Negative chest. Dictated by: Dictated on workstation # [id number]
[2021-09-23 16:25] LABS: ALBUMIN 4.3 GM/DL (3.2-4.5); CHLORIDE 107 MMOL/L (98-107); POTASSIUM 3.8 MMOL/L (3.6-5.0); SODIUM 139 MMOL/L (135-145)
[2021-09-23 16:26] LABS: CALCIUM 9.5 MG/DL (8.5-10.1)
[2021-09-23 16:48] LABS: ALANINE AMINOTRANSFERASE 41 U/L (0-55); ALKALINE PHOSPHATASE 79 U/L (40-136); BILIRUBIN,TOTAL 0.4 MG/DL (0.1-1.0); CARBON DIOXIDE 21 MMOL/L (21-32); CREATININE SERUM 0.95 MG/DL (0.60-1.30); GFR ESTIMATED 97; GLUCOSE 99 MG/DL (70-105); TOTAL PROTEIN 7.1 GM/DL (6.4-8.2)
[2021-09-23 17:07] LABS: BUN/CREATININE RATIO 14
[2021-09-23] MEDS ORDERED: LORA-404 PO (17:41)
[2021-09-23 18:04] VITALS: BP 167/100
== END 2021-09-23 18:04 | disposition home or self-care (01) ==
LOC: EDUNIT# 15:32 → ER 15:38
DX: F41.9 Anxiety disorder, unspecified (principal); J98.8 Other specified respiratory disorders
CPT/HCPCS: 36415; 71045; 80053; 83880; 84145; 84439; 84443; 84484; 85025; 93005